=== PATIENT | female | born 1970 | race Caucasian/White ===

== ENCOUNTER 2020-10-26 01:51 | Inpatient (IN) | payer MEDICARE, OTHER ==
[~2020-10-26] VITALS: Ht 167.6 cm; Wt 90.7 kg
[~2020-10-26 01:51] MED LIST: ALLEGRA ALLERG180 MG PO; CYCLOBENZAPRINE10 MG PO; HYDROCHLOROTHIA25 MG PO; PEPCID20 MG PO; PROZAC40 MG PO; SINGULAIR10 MG PO; SYNTHROID88 MCG PO; VITAMIN D3125 MCG PO; ZESTRIL20 MG PO; ZINC50 M1 PO; ZYLOPRIM100 MG PO
[2020-10-26 07:20] LABS: HEMOGLOBIN 12.3 gm/dl (12.3-15.3); RED BLOOD COUNT 4.4 M/UL (4.00-5.10); WHITE BLOOD COUNT 17.6 K/UL (4.5-11.0)
[2020-10-26] MEDS ORDERED: ULTRACET TABLE1 EACH PO (07:34)
[2020-10-26 08:16] LABS: BUN/CREATININE RATIO 15 (0-10)
[2020-10-27 06:10] LABS: HEMOGLOBIN 11.7 gm/dl (12.3-15.3); RED BLOOD COUNT 4.22 M/UL (4.00-5.10)
[2020-10-27 06:27] LABS: BUN/CREATININE RATIO 14 (0-10)
[2020-10-28] MEDS ORDERED: CLOPIDOGREL75 MG PO (11:22)
[2020-10-28] MEDS ORDERED: ATORVASTATIN CA20 MG PO (11:22)
[2020-10-28] MEDS ORDERED: ASPIRIN EC81 MG PO (11:22)
[2020-10-28] MEDS ORDERED: NITROGLYCERIN0.4 MG SL (11:22)
[2020-10-28] MEDS ORDERED: CARVEDILOL3.125 MG PO (11:22)
== END 2020-10-28 13:00 | disposition home or self-care (01) | DRG 246 ==
LOC: CDU 02:36 → CCU 04:34
PROVIDERS: ADMIT Internal Medicine Interventional Cardiology
PROC: 3E033XZ Introduction of Vasopressor into Peripheral Vein, Percutaneous Approach (ICD-10-PCS; principal; 2020-10-26)
PROC: 027034Z Dilation of Coronary Artery, One Artery with Drug-eluting Intraluminal Device, Percutaneous Approach (ICD-10-PCS; 2020-10-26)
PROC: 4A023N7 Measurement of Cardiac Sampling and Pressure, Left Heart, Percutaneous Approach (ICD-10-PCS; 2020-10-26)
PROC: B2151ZZ Fluoroscopy of Left Heart using Low Osmolar Contrast (ICD-10-PCS; 2020-10-26)
PROC: B2111ZZ Fluoroscopy of Multiple Coronary Arteries using Low Osmolar Contrast (ICD-10-PCS; 2020-10-26)
DX: I21.19 ST elevation (STEMI) myocardial infarction involving other coronary artery of inferior wall (principal); R57.0 Cardiogenic shock; I25.10 Atherosclerotic heart disease of native coronary artery without angina pectoris; I48.91 Unspecified atrial fibrillation; E78.5 Hyperlipidemia, unspecified; I10 Essential (primary) hypertension; E03.9 Hypothyroidism, unspecified; F17.200 Nicotine dependence, unspecified, uncomplicated; I95.9 Hypotension, unspecified
CPT/HCPCS: 36415; 80048; 80061; 82550; 84484; 85027; 85347; 87635; 93005; C1725; C1760; C1874; C1887; J0461; J1265; J1644; J2370; J2405; J2550; J7030; J7040; Q9965